=== PATIENT | female | born 1990 | race Caucasian/White ===

== ENCOUNTER → 2020-07-22 17:16 | Outpatient (CLI) | payer BC, SELFPAY | PROVIDERS: PCP Family Medicine; Referring Provider Nurse Practitioner Family; Visit Provider Nurse Practitioner Family | DX: Z20.828 Contact with and (suspected) exposure to other viral communicable diseases (principal) | CPT/HCPCS: 87635; C9803; U0003 ==

== ENCOUNTER → 2020-07-27 09:40 | Outpatient (CLI) | payer BC, SELFPAY | PROVIDERS: PCP Family Medicine; Referring Provider Family Medicine; Visit Provider Family Medicine | DX: Z20.828 Contact with and (suspected) exposure to other viral communicable diseases (principal) | CPT/HCPCS: 87635; C9803; U0003 ==

== ENCOUNTER 2022-07-27 16:47 | Emergency (ER) | payer OTHER, SELFPAY ==
[2022-07-27 16:49] VITALS: BP 151/96; PULSE 128; RESP 18; TEMP 36.6; O2SAT 99; BMI 35.2
--- NOTE | 2022-07-27 17:56 | CT_ITS ---
EXAM: CT ANGIOGRAPHY CHEST WITHOUT AND WITH INTRAVENOUS CONTRAST CLINICAL INDICATION: concern for PE TECHNIQUE: Helically acquired angiography images were obtained of the chest without and with intravenous contrast. CTDIvol = ( 7.80 ) mGy, DLP = ( 498.43 ) mGycm This CT exam was performed using one or more of the following dose reduction techniques: automated exposure control, adjustment of the mA and/or kV according to patient size, and/or use of iterative reconstruction technique. This report was created using Open[employer] report generation technology. MIP reconstructed images were created and reviewed. CONTRAST: IV 100mL Isovue-370 COMPARISON: None. FINDINGS: PULMONARY ARTERIES: No PE. Normal in caliber. No evidence of pulmonary embolism. AORTA: No aortic aneurysm or dissection. GREAT VESSELS OF AORTIC ARCH: Unremarkable. Normal in caliber. No evidence of dissection. LUNGS AND PLEURAL SPACES: No pneumonia. No pleural effusion or pneumothorax. No mass. HEART: Unremarkable. Heart size is normal. No pericardial effusion. No signs of right heart strain, ratio of right ventricle to left ventricle measures less than 1. MEDIASTINUM: Unremarkable. No mediastinal or hilar adenopathy. Esophagus is unremarkable. No hiatal hernia. THYROID: Unremarkable. No thyroid lesions. BONES/JOINTS: Unremarkable. No suspicious lytic or blastic abnormality. LIVER: Hepatic steatosis. CT/CTA Chest W/WO Contrast IMPRESSION: No PE, pneumonia or aortic dissection. No other acute disease. Electronically Signed: Rupert Quintero MD at 20:11 EDT ,
--- NOTE | 2022-07-27 17:58 | EDS_ITS ---
HPI <EDDIE Sims - Last Filed: 07/27/22 20:33> History of Present Illness Chief Complaint: Palpitations Narrative Narrative: 32-year-old female with history of anxiety, depression who is currently does not take any medication presents the emergency department with 5 days of increased shortness of breath, tachycardia. Patient did get seen on Saturday, was diagnosed with bronchitis, placed on prednisone. Patient states continue to feel short of breath, she still feels her heart pounding, she feels dizzy, lightheaded and is here for evaluation. Patient also states that she is thirsty, urinating frequently. She denies any chance of . Patient denies any recent trips, history of blood clotting disorder. Patient states the pain is worse when she takes a deep breath. She was told to come in by the urgent care. PFSH <EDDIE Sims - Last Filed: 07/27/22 20:33> [facility] Home Medications NK 07/27/22 [History Last Taken Unknown] Allergy/AdvReac Type Severity Reaction Status Date / Time Penicillins [PCN] AdvReac Rash Verified 07/27/22 18:27 Social History Smoking Status: Never smoker ROS <EDDIE Sims - Last Filed: 07/27/22 20:33> ROS ED ROS Narrative Constitutional: Negative for fever, chills, weight loss. Positive for generalized weakness, fatigue Eyes: Negative for vision loss, vision change, double vision ENT: Negative for any sore throat, ear pain, congestion Cardiovascular: Negative for any chest pain. Positive for chest tightness, palpitations Respiratory: Negative for any cough, sputum production, hemoptysis. Positive for dyspnea, dyspnea on exertion, orthopnea Gastrointestinal: Negative for any abdominal pain, nausea, vomiting, diarrhea, constipation, blood in stool, blood in vomit : Negative for any dysuria, retention, blood in urine. Positive for urinary frequency Muscle skeletal: Negative for any muscle joint pain, stiffness, arthralgias, neck pain, back pain. Positive generalized myalgias Neurological: Negative for any headache, syncope, numbness or tingling, dizziness Skin: Negative for any rashes, lumps, itching, abrasions, lacerations Psychiatric: Negative for any depression, anxiety, stress, suicidal ideation, homicidal ideation Hematologic: Negative for any easy bruising, excessive bruising, easy bleeding Allergies: Negative for any eczema, hives, rash EXAM <EDDIE Sims - Last Filed: 07/27/22 20:33> Physical Exam Narrative Exam Narrative: Vital signs reviewed. Patient while during exam had a heart rate of 122. HEET: Head normocephalic atraumatic, TMs clear bilaterally. Posterior pharynx is clear, moist mucous membranes. Nares clear bilaterally. Neck: Supple with no lymphadenopathy or tenderness. No signs of meningismus, negative jolt sign. Cardiac: Tachycardic rate, no murmurs gallops or rubs, equal peripheral pulses bilaterally. Respiratory: Lungs clear to auscultation bilaterally. No chest tenderness. Abdomen: Soft, nontender, nondistended. No abdominal bruit or pulsatile masses. No hepatosplenomegaly Extremities: No peripheral edema, no signs of gross trauma or deformity. Active full range of motion of all extremities. Neuro: Cranial nerves II through XII intact, no focal neurological deficits. Skin: Clean dry and intact with no rash, purpura, petechiae, vesicles or pustules. Backs/flank: No CVA tenderness, no midline spinal tenderness, no deformity. Psych: Normal mood and affect. No SI, HI or acute psychosis. Const Vital Signs: 07/27/22 16:49 07/27/22 18:00 07/27/22 18:28 Temperature 97.8 F Temperature Source Temporal Pulse Rate 128 H 106 H Respiratory Rate 18 23 H Respiratory Effort Normal Non-Labored Respiratory Pattern Normal Blood Pressure 151/96 H Blood Pressure Mean 114 Pulse Ox 99 96 Oxygen Delivery Method Room Air Room Air Positive well nourished and well developed General Appearance ED: well developed <Dr. Sebastian Bolanos MD - Last Filed: 07/27/22 20:33> Physical Exam Const Vital Signs: 07/27/22 16:49 07/27/22 18:00 07/27/22 18:28 Temperature 97.8 F Temperature Source Temporal Pulse Rate 128 H 106 H Respiratory Rate 18 23 H Respiratory Effort Normal Non-Labored Respiratory Pattern Normal Blood Pressure 151/96 H Blood Pressure Mean 114 Pulse Ox 99 96 Oxygen Delivery Method Room Air Room Air MDM <EDDIE Sims - Last Filed: 07/27/22 20:33> MDM Lab Data Labs: Laboratory Results - last 24 hr 07/27/22 07/27/22 07/27/22 18:10 18:10 18:10 WBC 11.2 H RBC 4.46 Hgb 13.4 Hct 41.0 MCV 91.9 MCH 30.0 MCHC 32.7 RDW Std Deviation 43.9 RDW Coeff of Raquel 13.2 Plt Count 211 MPV 10.7 Immature Gran % (Auto) 0.300 Neut % (Auto) 86.2 H Lymph % (Auto) 10.7 L Cataño % (Auto) 2.7 Eos % (Auto) 0.0 Baso % (Auto) 0.1 Absolute Neuts (auto) 9.6 H Absolute Lymphs (auto) 1.20 Nucleated RBC % 0 Sodium 138 Potassium 5.5 H Chloride 108 H Carbon Dioxide 24.0 Anion Gap 6 BUN 10 Creatinine 0.72 Estim Creat Clear Calc 96.86 Est GFR (MDRD) Af Amer 121 Est GFR (MDRD) Non-Af 100 BUN/Creatinine Ratio 13.9 Glucose 112 H Calcium 9.2 Troponin I High Sens 4 TSH 1.02 Urine Color Straw Urine Clarity Clear Urine pH 8.0 Ur Specific Morning Sun 1.010 Urine Protein Negative Urine Glucose (UA) Normal Urine Ketones Negative Urine Occult Blood Negative Urine Nitrite Negative Urine Bilirubin Negative Urine Urobilinogen Normal Ur Leukocyte Esterase Negative Urine RBC 0 SEEN Urine WBC 0 SEEN Ur Squamous Epith Cells 0-5 SEEN Urine Bacteria 2+ Urine Mucus 0 SEEN Urine Test Negative Radiography Diagnostic Testing: Clinical Impression(s) from Imaging Studies Chest CTA 07/27/22 17:56 IMPRESSION: No PE, pneumonia or aortic dissection. No other acute disease. Electronically Signed: Rupert Quintero MD at 20:11 EDT , EKG Sinus tachycardia: Attestation: I personally reviewed and interpreted this EKG as follows: Comments: Sinus tachycardia, rate 105 bpm, [place] 140 ms, QRS duration 90 ms, no acute ST elevation, no acute infarct noted. Treatment and Re-Evaluation Narrative: Patient appears well, patient appears nontoxic, vital signs are stable. Patient presents to the emergency department with palpitations, shortness of breath, weakness over the last several days. Patient did have a full work-up. Patient EKG did show sinus tachycardia however no abnormality. Patient did have multiple laboratory studies, patient's CBC shows a slight leukocytosis with a white blood count 11.2, patient's chemistries was unremarkable, patient's potassium was 5.5 however this was moderately hemolyzed. Patient's troponin was negative, TSH was within normal limits. Patient's COVID-19, influenza was unremarkable. Patient's urinalysis was negative for any infection. Patient did receive a CT of the chest secondary to expiratory chest pain, tachycardia of 125, on control. CT of the chest showed no PE, pneumonia or dissection. No other acute disease. Patient did have relief of symptoms with IV fluids. At this time, there is no evidence of any cardiac pathology, pneumonia, pulmonary embolus. Patient will follow-up outpatient with her PCP, if she continues to have palpitations she will follow-up and get a Holter monitor. Patient is happy with the plan of care and is stable for discharge. <Dr. Sebastian Bolanos MD - Last Filed: 07/27/22 20:33> [facility] Narrative Medical decision making narrative: I have personally performed a face to face assessment of the patient and have reviewed the RAMSEY Note. I performed a substantive portion of the visit including all aspects of the following. My vergara findings include: History is [32-year-old female with accelerated heart rate. Denies chest pain. No hemoptysis. No history of DVT or PE. Denies recent illness. Denies excessive use of any type of stimulant or caffeine.] Exam is [well-appearing 32-year-old female. Vital signs stable afebrile. Initial heart rate 128. On my exam in the 80s. H EENT exam normal. Neck nontender no thyromegaly. Lungs clear to auscultation. Heart H EENT exam normal. Neck nontender no thyromegaly. Lungs clear to auscultation. Heart regular rhythm rate about 90 no murmur. Chest were nontender. Abdomen soft nontender. Moving all 4 extremities. Calves nontender without edema. Neurologic exam normal. Regular rhythm rate about 90. Abdomen soft nontender. Moving all 4 extremities.] Medical Decision Making [after work-up the patient's labs were unremarkable. Repeat exam at 8:25 PM. She is doing well be discharged home.] Other additions or changes: [None] Lab Data Attestation: I reviewed the patient's lab results. Lab results narrative: CBC, BMP, troponin, TSH, UA and CTA all negative. Labs: Laboratory Results - last 24 hr 07/27/22 07/27/22 07/27/22 18:10 18:10 18:10 WBC 11.2 H RBC 4.46 Hgb 13.4 Hct 41.0 MCV 91.9 MCH 30.0 MCHC 32.7 RDW Std Deviation 43.9 RDW Coeff of Raquel 13.2 Plt Count 211 MPV 10.7 Immature Gran % (Auto) 0.300 Neut % (Auto) 86.2 H Lymph % (Auto) 10.7 L Cataño % (Auto) 2.7 Eos % (Auto) 0.0 Baso % (Auto) 0.1 Absolute Neuts (auto) 9.6 H Absolute Lymphs (auto) 1.20 Nucleated RBC % 0 Sodium 138 Potassium 5.5 H Chloride 108 H Carbon Dioxide 24.0 Anion Gap 6 BUN 10 Creatinine 0.72 Estim Creat Clear Calc 96.86 Est GFR (MDRD) Af Amer 121 Est GFR (MDRD) Non-Af 100 BUN/Creatinine Ratio 13.9 Glucose 112 H Calcium 9.2 Troponin I High Sens 4 TSH 1.02 Urine Color Straw Urine Clarity Clear Urine pH 8.0 Ur Specific Morning Sun 1.010 Urine Protein Negative Urine Glucose (UA) Normal Urine Ketones Negative Urine Occult Blood Negative Urine Nitrite Negative Urine Bilirubin Negative Urine Urobilinogen Normal Ur Leukocyte Esterase Negative Urine RBC 0 SEEN Urine WBC 0 SEEN Ur Squamous Epith Cells 0-5 SEEN Urine Bacteria 2+ Urine Mucus 0 SEEN Urine Test Negative Radiography Diagnostic Testing: Clinical Impression(s) from Imaging Studies Chest CTA 07/27/22 17:56 IMPRESSION: No PE, pneumonia or aortic dissection. No other acute disease. Electronically Signed: Rupert Quintero MD at 20:11 EDT , Discharge Plan Triage Chief Complaint: Palpitations ED Midlevel Provider: Dewayne Vigil ED Provider: Sebastian Bolanos Dx/Rx/DC Orders Prescriptions: No Action NK Primary Care Provider: Kvng Norris Referrals: Kvng Norris MD [Primary Care Provider] -
[2022-07-27 18:16] LABS: Mucous, Urine 0 SEEN /hpf (<or=2+); Red Blood Cells-Urine 0 SEEN /hpf (0-5); White Blood Cells 0 SEEN /hpf (0-5)
[2022-07-27 18:20] LABS: Absolute Neutrophil Count 9.6 X10^3/uL (2.0-7.7); Basophil# 0.01 X10^3/uL; Basophil% 0.1 % (0-1); Hemoglobin 13.4 g/dL (12.0-15.0); Lymphocyte % 10.7 % (19-41); Mean Corp Hgb Conc 32.7 g/dL (32-36); Mean Corpuscular Volume 91.9 fL (81-99); Mean Platelet Vol. 10.7 fl (6.2-12.0); Monocyte% 2.7 % (0-10); NRBC Flagged by Analyzer 0 % (0-5); Neutrophil # 9.64 X10^3/uL (2.7-7.7); Neutrophil % 86.2 % (47-70); Platelet Count 211 K/mm3 (150-450); RBC Distribution Width CV 13.2 % (11.6-14.6); RBC Distribution Width SD 43.9 fl (35.1-43.9); Red Blood Count 4.46 M/mm3 (4.2-5.4); White Blood Count 11.2 K/mm3 (4.4-11.0)
[2022-07-27 18:21] LABS: Color, Urine Straw (Yellow); Glucose, Dipstick Normal (Normal); Ketone-Dipstick Negative (Negative); Leukocyte Esterase-Dipstick Negative /ul (Negative); Nitrite-Dipstick Negative (Negative); Occult Blood-Urine Negative /ul (Negative); Protein-Dipstick Negative (Negative); Urine Bilirubin Dipstick Negative (Negative); Urine Clarity Clear (Clear); Urine Urobilinogen Normal (Normal)
[2022-07-27 18:28] VITALS: PULSE 106; RESP 23; O2SAT 96
[2022-07-27] MEDS: 0.9% Normal Saline 1,000 ML 1000 ML IV (18:28)
[2022-07-27 18:35] LABS: Bacteria 2+ /hpf (None Seen); Squamous Epithelial Cells - UA 0-5 SEEN /hpf (5-10)
[2022-07-27 18:36] LABS: Internal QC Validated? YES +Cl - CLEAR BKGD; Pregnancy, Urine Negative Negative
[2022-07-27 19:00] VITALS: RESP 18
[2022-07-27 19:12] LABS: Anion Gap 6 (5-15); BUN 10 mg/dL (7-18); BUN/Creat Ratio 13.9 RATIO (10-20); Calcium,Total 9.2 mg/dL (8.5-10.1); Chloride 108 mmol/L (98-107); Creatinine, Serum 0.72 mg/dL (0.55-1.02); EST Glomerular Filtration Rate 100 mL/min (>60); Est Glom Filt Rate - Afr Amer 121 mL/min (>60); Estimated Creatinine Clearance 96.86 ml/min; Glucose 112 mg/dL (74-106); Potassium 5.5 mmol/L (3.5-5.1); Sodium Level 138 mmol/L (136-145); Thyroid Stim Hormone (TSH) 1.02 uIU/mL (0.358-3.74); Troponin-I HS 4 pg/mL (3.0-54.0)
[2022-07-27 20:00] VITALS: BP 137/91
[2022-07-27 20:55] VITALS: RESP 16
== END 2022-07-27 20:56 | disposition home or self-care (01) ==
PROVIDERS: Nurse Practitioner; Emergency Provider Emergency Medicine; PCP Family Medicine; Visit Provider Emergency Medicine
DX: R00.2 Palpitations (principal); J40 Bronchitis, not specified as acute or chronic; F41.9 Anxiety disorder, unspecified; F32.9 Major depressive disorder, single episode, unspecified; Z79.899 Other long term (current) drug therapy; Z79.52 Long term (current) use of systemic steroids
CPT/HCPCS: 71275; 80048; 81001; 81025; 84443; 84484; 85025; 87428; 93005; 99284; J7030; Q9967; A4216